=== PATIENT | female | born 1930 | race Caucasian/White ===

== ENCOUNTER 2017-06-08 09:42 | Emergency (ER) | payer OTHER ==
[~2017-06-08] VITALS: Ht 152.4 cm; Wt 53.1 kg
[~2017-06-08 09:42] MED LIST: ERGO1CAP6 PO; HYDR50TA15 PO; LEVO137T3 PO; LOSA100T27 PO; SIMV10TA84 PO; SODI650T PO
[2017-06-08 10:37] LABS: Basophils # (auto) 0.1 uL; Basophils % (auto) 1.1 % (0.0-2.0); Eosinophils # (auto) 0.3 uL; Eosinophils % (auto) 4.8 % (0.0-7.0); Hematocrit 33.6 % (36.0-46.0); Hemoglobin 11.4 g/dL (12.2-16.2); Lymphocytes % (auto) 15.7 % (10.0-50.0); Mean Corpuscular Hemoglobin 32.3 pg (28.0-32.0); Mean Corpuscular Hgb Conc. 33.8 g/dL (32.0-36.0); Mean Corpuscular Volume 95.5 fL (80.0-100.0); Monocytes # (auto) 0.5 uL; Monocytes % (auto) 7.8 % (0.0-12.0); Neutrophils # (auto) 4.5 uL; Neutrophils % (auto) 70.6 % (37.0-80.0); Platelet Count (auto) 126 10^3/uL (140-450); Red Blood Cells 3.52 10^6/uL (4.0-5.20); Red Cell Distribution Width 14.6 % (11.8-14.3); White Blood Cell 6.4 10^3/uL (4.4-10.8)
[2017-06-08 11:06] LABS: Albumin 3.3 g/dL (3.4-5.0); BUN/Creatinine Ratio 11.5; Bilirubin, Total 0.5 mg/dL (0.2-1.0); Calcium 8.4 mg/dL (8.5-10.1); Potassium 4.6 mmol/L (3.5-5.1); Total Protein 7.1 g/dL (6.4-8.2)
[2017-06-08] MEDS ORDERED: MORPHINE SULFATE 10 MG/ML INJ 1ML SDV IV ONE (12:00)
[2017-06-08 12:08] LABS: INR 0.98 (0.9-1.15); Prothrombin Time 10.7 sec (9.37-12.3)
[2017-06-08] MEDS ORDERED: ACETAMINOPHEN 325 MG TAB PO ONE (12:45)
[2017-06-08] MEDS ORDERED: LIDOCAINE 1% HCL (LOCAL ANESTH.) INJ 20ML MDV ONE (13:11)
[2017-06-08 15:00] VITALS: BP 164/70
== END 2017-06-08 14:49 | disposition home or self-care (01) ==
LOC: ER 09:42 → EDBD 09:42 → ER 14:49
DX: S52.501A Unspecified fracture of the lower end of right radius, initial encounter for closed fracture (principal); S09.90XA Unspecified injury of head, initial encounter; N17.9 Acute kidney failure, unspecified; I13.0 Hypertensive heart and chronic kidney disease with heart failure and stage 1 through stage 4 chronic kidney disease, or unspecified chronic kidney disease; I50.9 Heart failure, unspecified; E11.22 Type 2 diabetes mellitus with diabetic chronic kidney disease; N18.9 Chronic kidney disease, unspecified; E78.5 Hyperlipidemia, unspecified; Z95.1 Presence of aortocoronary bypass graft; Z90.49 Acquired absence of other specified parts of digestive tract; Z90.710 Acquired absence of both cervix and uterus; Z88.2 Allergy status to sulfonamides; Z88.8 Allergy status to other drugs, medicaments and biological substances; Z79.899 Other long term (current) drug therapy; W01.0XXA Fall on same level from slipping, tripping and stumbling without subsequent striking against object, initial encounter; Y93.89 Activity, other specified; Y99.8 Other external cause status; Y92.89 Other specified places as the place of occurrence of the external cause
CPT/HCPCS: 12011; 29125; 36415; 70450; 71045; 73100; 73502; 80053; 85025; 85610; 93005; J2001

== ENCOUNTER 2020-03-07 22:20 | Inpatient (IN) | payer OTHER ==
[~2020-03-07] VITALS: Ht 152.4 cm; Wt 60.1 kg
[~2020-03-07 22:20] MED LIST changes: +LOSA-39 PO; -LOSA100T27 PO
[2020-03-08] LABS: Basophils # (auto) 0 10 ^3/uL (0-0.2); Basophils % (auto) 0.4 % (0.0-2.0); Eosinophils # (auto) 0.1 10 ^3/uL (0-0.8); Hematocrit 32.7 % (36.0-46.0); Hemoglobin 10.8 g/dL (12.2-16.2); Lymphocytes # (auto) 0.4 10 ^3/uL (0.4-5.4); Lymphocytes % (auto) 4.5 % (10.0-50.0); Mean Corpuscular Hemoglobin 32.4 pg (28.0-32.0); Mean Corpuscular Hgb Conc. 33.1 g/dL (32.0-36.0); Mean Corpuscular Volume 97.9 fL (80.0-100.0); Monocytes % (auto) 11.6 % (0.0-12.0); Neutrophils # (auto) 7.4 10 ^3/uL (1.6-8.6); Neutrophils % (auto) 82.5 % (37.0-80.0); Platelet Count (auto) 169 10^3/uL (140-450); Red Blood Cells 3.34 10^6/uL (4.0-5.20); Red Cell Distribution Width 15.7 % (11.8-14.3); White Blood Cell 8.9 10^3/uL (4.4-10.8)
[2020-03-08 00:15] LABS: INR 1.14 (0.9-1.15); Partial Thromboplastin Time 30.9 sec (23.0-31.2)
[2020-03-08 00:21] LABS: Albumin 2.5 g/dL (3.4-5.0); BUN/Creatinine Ratio 15.7; Calcium 9.5 mg/dL (8.5-10.1); Potassium 4.1 mmol/L (3.5-5.1)
[2020-03-08 00:26] LABS: Bilirubin, Total 0.4 mg/dL (0.2-1.0); Total Protein 6.7 g/dL (6.4-8.2)
[2020-03-08] MEDS ORDERED: FUROSEMIDE 20 MG/2 ML VIAL IV ONE (01:00)
[2020-03-08] MEDS ORDERED: LORazepam 2MG/ML-1ML VIAL IV ONE (01:45)
[2020-03-08] MEDS ORDERED: ONDANSETRON HCL 4 MG/2 ML VIAL IV PRN (04:15)
[2020-03-08] MEDS ORDERED: NITROGLYCERIN 0.4 MG SL TAB SL PRN (04:15)
[2020-03-08] MEDS ORDERED: ERGOCALCIFEROL 50,000 UNIT(1.25MG) CAP PO SCH (04:15)
[2020-03-08] MEDS ORDERED: DEXTROSE (50%) 50ML SYRG IV PRN (04:15)
[2020-03-08] MEDS ORDERED: MORPHINE SULFATE 4 MG/ML SYR/VIAL IV PRN (04:15)
[2020-03-08] MEDS ORDERED: MORPHINE SULF INJ 2 MG/ML SYRINGE 1ML IV PRN (04:15)
[2020-03-08] MEDS ORDERED: DOCUSATE SOD 100 MG CAP PO PRN (04:15)
[2020-03-08 05:59] LABS: Basophils # (auto) 0 10 ^3/uL (0-0.2); Eosinophils # (auto) 0.1 10 ^3/uL (0-0.8); Lymphocytes # (auto) 0.9 10 ^3/uL (0.4-5.4)
[2020-03-08] MEDS ORDERED: hydrALAZINE HCL 25 MG TAB PO SCH (06:00)
[2020-03-08 06:04] LABS: Basophils % (auto) 0.3 % (0.0-2.0); Eosinophils % (auto) 1.1 % (0.0-7.0); Hematocrit 36.9 % (36.0-46.0); Hemoglobin 12.1 g/dL (12.2-16.2); Lymphocytes % (auto) 9.2 % (10.0-50.0); Mean Corpuscular Hemoglobin 33.3 pg (28.0-32.0); Mean Corpuscular Hgb Conc. 32.9 g/dL (32.0-36.0); Mean Corpuscular Volume 101.3 fL (80.0-100.0); Monocytes # (auto) 1.2 10 ^3/uL (0-1.3); Monocytes % (auto) 12.9 % (0.0-12.0); Neutrophils # (auto) 7.2 10 ^3/uL (1.6-8.6); Neutrophils % (auto) 76.5 % (37.0-80.0); Nucleated Red Blood Cells % 0.1 %; Platelet Count (auto) 178 10^3/uL (140-450); Red Blood Cells 3.64 10^6/uL (4.0-5.20); Red Cell Distribution Width 16.5 % (11.8-14.3); White Blood Cell 9.5 10^3/uL (4.4-10.8)
[2020-03-08 06:15] LABS: Potassium 4.3 mmol/L (3.5-5.1)
[2020-03-08 06:22] LABS: BUN/Creatinine Ratio 17.2; Bilirubin, Total 0.6 mg/dL (0.2-1.0); Calcium 9.4 mg/dL (8.5-10.1); Total Protein 7.1 g/dL (6.4-8.2)
[2020-03-08] MEDS: LEVOTHYROXINE SODIUM 50 MCG TAB PO SCH (06:36)
[2020-03-08] MEDS: SODIUM CHLOR 0.9% PF (SALINE LOCK) 10ML VIAL/SYR IV SCH ×3 (06:54→22:01)
[2020-03-08] MEDS: InsuLIN REG 1unit/0.01ml Soln (100units/ml) SC SCH ×4 (06:59→22:00)
[2020-03-08] MEDS: ACCU-CHEK COMFORT CURVE STRIP VI SCH ×4 (07:00→22:02)
[2020-03-08] MEDS: MULTIPLE VITAMIN TAB PO SCH (10:00)
[2020-03-08] MEDS ORDERED: LOSARTAN POTASSIUM 50 MG TAB PO SCH (10:00)
[2020-03-08] MEDS: cefTRIAXone 1GM/50ML D5W 50 ML IV SCH (10:48)
[2020-03-08] MEDS: SODIUM BICARBONATE 650 MG TAB PO SCH ×2 (10:49→22:01)
[2020-03-08] MEDS: ZINC SULFATE 220mg CAP or TAB PO SCH (10:49)
[2020-03-08] MEDS: ENOXAPARIN SOD 30 MG/0.3 ML SYRINGE SC SCH (10:50)
[2020-03-08] MEDS: ASCORBIC ACID 500 MG TAB PO SCH ×2 (10:50→22:02)
[2020-03-08] MEDS: AZITHROMYCIN 500MG/ 250ML 250 ML IV SCH (12:22)
--- NOTE | 2020-03-08 16:00 | NUR ---
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 PRIMARY RN VERBALIZED UNDERSTANDING.
[2020-03-08 16:59] VITALS: BP 159/69
--- NOTE | 2020-03-08 17:33 | NUR ---
[facility] SB[facility] received. Patient oriented to NILO AGUILAR RN primary RN, unit, room, bed, and unit policies regarding patient care and visiting hours. Patient now on continuous telemetry monitoring, tele box #[id number] and telemetry reading on arrival to unit is a-fib. Patient placed on bedside oxygen, weighed by bedscale and encouraged to call if they need something. All questions and concerns addressed, patient verbalized understanding. Addendum: 03/08/20 at 1732 by NILO AGUILAR RN RN noted intended for [id number]
--- NOTE | 2020-03-08 19:00 | NUR ---
Opening Shift Note Assumed care of patient from day shift RN, awake and alert and oriented x4. No S/S of distress/SOB or pain. Instructed on POC and to call for assist PRN, safety measures in place bed in lowest position side rails up x2 and call light with in reach and bed alarm on. will continue to monitor for changes Q1hr and PRN.
--- NOTE | 2020-03-08 19:32 | NUR ---
Closing Shift Note Patient resting in bed. No distress noted. Will endorse care to the night coordinator RN.
[2020-03-08 22:00] VITALS: BP 122/63
[2020-03-08] MEDS: PRAVASTATIN SODIUM 20 MG TAB PO SCH (22:01)
[2020-03-08] MEDS: HYDROcodone-ACET 5/325MG TAB PO PRN (22:48)
--- NOTE | 2020-03-08 22:48 | NUR ---
Patient complained of generalized 6/10 pain at this time pain medication administered.
--- NOTE | 2020-03-08 23:48 | NUR ---
patient states no pain at this time.
--- NOTE | 2020-03-09 02:10 | NUR ---
Paged hospitalist regarding positive blood culture.
--- NOTE | 2020-03-09 02:20 | NUR ---
Hospitalist called back new order for vancomycin per pharmacy telephone order read back and verified.
[2020-03-09] MEDS ORDERED: VANCOMYCIN 1GM/250ML 250 ML IV ONE (02:45)
[2020-03-09] MEDS ORDERED: VANCOMYCIN PER PHARMACY 0 MG IV SCH (02:45)
[2020-03-09 05:00] VITALS: BP 127/66
[2020-03-09] MEDS: SODIUM CHLOR 0.9% PF (SALINE LOCK) 10ML VIAL/SYR IV SCH ×3 (06:00→22:00)
[2020-03-09] MEDS: LEVOTHYROXINE SODIUM 50 MCG TAB PO SCH (06:48)
[2020-03-09] MEDS: InsuLIN REG 1unit/0.01ml Soln (100units/ml) SC SCH ×4 (06:49→22:00)
[2020-03-09] MEDS: ACCU-CHEK COMFORT CURVE STRIP VI SCH ×4 (06:49→22:26)
--- NOTE | 2020-03-09 08:00 | NUR ---
OPENING SHIFT NOTE ASSUMED CARE OF PATIENT AWAKE AND ALERT. NO S/S OF DISTRESS NOTED OR COMPLAINTS OF PAIN. PATIENT UPDATED ON POC FOR THE DAY AND ALL QUESTIONS ANSWERED. PATIENT ASSISTED TO SIT ON THE SIDE OF THE BED TO EAT BREAKFAST. BED IS IN LOWEST, LOCKED POSITION WITH SIDE RAILS UP X2 AND CALL LIGHT WITHIN REACH. WILL CONTINUE TO MONITOR Q1H AND PRN.
[2020-03-09 08:40] VITALS: BP 125/74
[2020-03-09 09:20] LABS: Basophils # (auto) 0 10 ^3/uL (0-0.2); Basophils % (auto) 0.4 % (0.0-2.0); Eosinophils # (auto) 0.1 10 ^3/uL (0-0.8); Eosinophils % (auto) 0.7 % (0.0-7.0); Hematocrit 38.5 % (36.0-46.0); Hemoglobin 12.4 g/dL (12.2-16.2); Lymphocytes # (auto) 0.5 10 ^3/uL (0.4-5.4); Lymphocytes % (auto) 4.8 % (10.0-50.0); Mean Corpuscular Hemoglobin 31.7 pg (28.0-32.0); Mean Corpuscular Hgb Conc. 32.2 g/dL (32.0-36.0); Mean Corpuscular Volume 98.6 fL (80.0-100.0); Monocytes % (auto) 9.4 % (0.0-12.0); Neutrophils % (auto) 84.7 % (37.0-80.0); Nucleated Red Blood Cells % 0.1 %; Platelet Count (auto) 213 10^3/uL (140-450); White Blood Cell 10.6 10^3/uL (4.4-10.8)
--- NOTE | 2020-03-09 09:34 | NUR ---
PARACENTESIS RECEIVED CALL FROM ULTRASOUND STATING THE RADIOLOGIST HAS DETERMINED THERE IS NOT ENOUGH FLUID TO WARRANT A PARACENTESIS. WILL CONTINUE CARE.
[2020-03-09 09:59] LABS: Anion Gap 15 (5-15); Carbon Dioxide 21 mmol/L (21-32); Chloride 83 mmol/L (98-107); Potassium 4.6 mmol/L (3.5-5.1)
[2020-03-09 10:00] LABS: Alanine Aminotransferase 25 U/L (13-56); Albumin 2.8 g/dL (3.4-5.0); Alkaline Phosphatase 91 U/L (45-117); Aspartate Aminotransferase 17 U/L (15-37); BUN/Creatinine Ratio 15.8; Bilirubin, Total 0.5 mg/dL (0.2-1.0); Blood Urea Nitrogen 75 mg/dL (7-18); Calcium 8.7 mg/dL (8.5-10.1); GFR African American 11 mL/min; GFR Non-African American 9 mL/min; Glucose 119 mg/dL (74-106); Magnesium 2.5 mg/dL (1.6-2.6); Total Protein 7.2 g/dL (6.4-8.2)
[2020-03-09 10:02] LABS: Sodium 119 mmol/L (136-145)
[2020-03-09] MEDS: cefTRIAXone 1GM/50ML D5W 50 ML IV SCH (10:22)
[2020-03-09] MEDS: AZITHROMYCIN 500MG/ 250ML 250 ML IV SCH (10:22)
[2020-03-09] MEDS: SODIUM BICARBONATE 650 MG TAB PO SCH ×2 (10:23→22:00)
[2020-03-09] MEDS: ZINC SULFATE 220mg CAP or TAB PO SCH (10:23)
[2020-03-09] MEDS: MULTIPLE VITAMIN TAB PO SCH (10:23)
[2020-03-09] MEDS: ASCORBIC ACID 500 MG TAB PO SCH ×2 (10:23→22:00)
[2020-03-09] MEDS: ENOXAPARIN SOD 30 MG/0.3 ML SYRINGE SC SCH (10:23)
--- NOTE | 2020-03-09 11:10 | NUR ---
WOUND CARE NOTE: WOUND CARE IN TO SEE PATIENT PER WOUND CARE REQUEST. PATIENT ADMITTED TO [facility]. BEDSIDE NURSE NOTED SKIN INTEGRITY ISSUES UPON ADMISSION. PHOTOGRAPHS TAKEN AT THAT TIME FOR REFERENCE. PATIENT OSEI SCORE IS 13. PATIENT NOTED TO HAVE SKIN TEARS TO LEFT LOWER ARM AND LEFT LOWER LEG. PATIENT ALSO HAS NON-BLANCHABLE REDNESS TO SACRUM. SKIN TEARS CLEANSED WITH NORMAL SALINE, PATTED DRY WITH STERILE GAUZE, THERAHONEY APPLIED AND COVERED WITH OPTIFOAM GENTLE DRESSINGS. ZGUARD APPLIED TO SACRUMA ND COVERED WITH OPTIFOAM GENTLE SACRAL DRESSING. RECOMMEND: FREQUENT Q2HOUR REPOSITIONING CONDITION PERMITS. REDISTRIBUTE PRESSURE UTILIZING PILLOWS AND WEDGES. DAILY/PRN DRESSING CHANGES. SKIN/WOUND CARE PLAN. CONTINUED MONITORING BY WOUND CARE TEAM. Addendum: 03/09/20 at 1448 by KAREN RIDDLE RN RN Amended: Links added.
[2020-03-09] MEDS: HYDROcodone-ACET 5/325MG TAB PO PRN ×2 (11:27→22:38)
--- NOTE | 2020-03-09 12:27 | NUR ---
Nutrition Consult/assessment Notes please see attached link fro complete assessment Est energy needs BW 60 [id number] kcals (30-33 kcals/kgBW), Est protein needs: 72-84 gms/day (1.2-1.4 g/kgBW r/t wounds HD)Will continue to reassess prn Addendum: 03/09/20 at [address] Amended: Links added.
--- NOTE | 2020-03-09 12:29 | NUR ---
AT BEDSIDE DR CORTEZ AT BEDSIDE ROUNDING ON PATIENT.
[2020-03-09 13:00] VITALS: BP 145/80
--- NOTE | 2020-03-09 13:45 | NUR ---
SPOKE WITH MD RECEIVED CALL FROM DR ESTES REGARDING CONSULTATION. PER DR ESTES PATIENT IS TO BE DIALYZED TODAY. WILL CONTINUE CARE.
[2020-03-09 17:00] VITALS: BP 140/71
[2020-03-09 22:00] VITALS: BP 114/48
[2020-03-09] MEDS: PRAVASTATIN SODIUM 20 MG TAB PO SCH (22:00)
--- NOTE | 2020-03-09 22:00 | NUR ---
spoke with Dr. Aleman, who requests for up to 1 liter to be taken off of pt, however pt had 1.5 liters taken off during dialysis tonight, veneer jointer operator will not page him so that I can confirm order, will ask day shift to f/u.
[2020-03-10 05:00] VITALS: BP 108/43
[2020-03-10] MEDS: SODIUM CHLOR 0.9% PF (SALINE LOCK) 10ML VIAL/SYR IV SCH ×3 (06:10→20:50)
[2020-03-10] MEDS: InsuLIN REG 1unit/0.01ml Soln (100units/ml) SC SCH ×4 (07:00→22:00)
[2020-03-10] MEDS: LEVOTHYROXINE SODIUM 50 MCG TAB PO SCH (07:00)
[2020-03-10] MEDS: ACCU-CHEK COMFORT CURVE STRIP VI SCH ×4 (07:16→22:22)
--- NOTE | 2020-03-10 07:18 | NUR ---
pt had episode of vomiting, given zofran prn, gown changed, meds am meds held to give zofran time to take effect. pt is calm airway patent, no s/s of distress.
[2020-03-10 07:38] LABS: Basophils # (auto) 0 10 ^3/uL (0-0.2); Basophils % (auto) 0.3 % (0.0-2.0); Eosinophils # (auto) 0.1 10 ^3/uL (0-0.8); Eosinophils % (auto) 0.6 % (0.0-7.0); Hematocrit 34.4 % (36.0-46.0); Hemoglobin 11.2 g/dL (12.2-16.2); Lymphocytes # (auto) 0.4 10 ^3/uL (0.4-5.4); Lymphocytes % (auto) 3.2 % (10.0-50.0); Mean Corpuscular Hemoglobin 31.9 pg (28.0-32.0); Mean Corpuscular Hgb Conc. 32.5 g/dL (32.0-36.0); Mean Corpuscular Volume 98.2 fL (80.0-100.0); Monocytes # (auto) 1.1 10 ^3/uL (0-1.3); Monocytes % (auto) 9.5 % (0.0-12.0); Neutrophils # (auto) 9.6 10 ^3/uL (1.6-8.6); Neutrophils % (auto) 86.4 % (37.0-80.0); Platelet Count (auto) 194 10^3/uL (140-450); Red Blood Cells 3.51 10^6/uL (4.0-5.20); Red Cell Distribution Width 15.9 % (11.8-14.3); White Blood Cell 11.2 10^3/uL (4.4-10.8)
[2020-03-10 08:03] LABS: Potassium 3.4 mmol/L (3.5-5.1)
[2020-03-10 08:09] LABS: BUN/Creatinine Ratio 12.4; Calcium 8.7 mg/dL (8.5-10.1)
[2020-03-10 09:00] VITALS: BP 131/67
[2020-03-10] MEDS: cefTRIAXone 1GM/50ML D5W 50 ML IV SCH (09:39)
[2020-03-10] MEDS: AZITHROMYCIN 500MG/ 250ML 250 ML IV SCH (09:39)
[2020-03-10] MEDS: ENOXAPARIN SOD 30 MG/0.3 ML SYRINGE SC SCH (09:40)
[2020-03-10] MEDS: ZINC SULFATE 220mg CAP or TAB PO SCH (09:45)
[2020-03-10] MEDS: SODIUM BICARBONATE 650 MG TAB PO SCH ×2 (09:45→22:00)
[2020-03-10] MEDS: ASCORBIC ACID 500 MG TAB PO SCH ×2 (09:46→22:00)
[2020-03-10] MEDS: MULTIPLE VITAMIN TAB PO SCH (09:46)
[2020-03-10 13:00] VITALS: BP 127/59
--- NOTE | 2020-03-10 16:21 | NUR ---
D/C Planning Per social service consul for hospice evaluation. Per ANNABELLE patient family has requested [facility] hospice. Faxed clinical information to agency. Per Kaya with [facility] hospice patient has been accepted. Per Kaya they will have medical equipment for patient tomorrow 03/11/20. Informed RN Elicia hospice cannot be arranged until medical equipment has been deliver to patient home.
--- NOTE | 2020-03-10 16:26 | NUR ---
DISCHARGE STATUS RECEIVED CALL FROM CASE MANAGEMENT STATING HOSPICE EQUIPMENT WILL NOT BE READY FOR PATIENT UNTIL TOMORROW. MD NOTIFIED AND DISCHARGE HELD UNTIL TOMORROW. WILL CONTINUE CARE.
[2020-03-10 16:42] VITALS: BP 108/54
[2020-03-10 22:00] VITALS: BP 110/41
[2020-03-10] MEDS: PRAVASTATIN SODIUM 20 MG TAB PO SCH (22:00)
[2020-03-11] MEDS ORDERED: LORazepam 2MG/ML-1ML VIAL IV ONE (01:45)
[2020-03-11 05:00] VITALS: BP 95/56
[2020-03-11] MEDS: SODIUM CHLOR 0.9% PF (SALINE LOCK) 10ML VIAL/SYR IV SCH ×2 (05:51→14:00)
[2020-03-11] MEDS: ACCU-CHEK COMFORT CURVE STRIP VI SCH ×2 (05:51→11:30)
[2020-03-11] MEDS: LEVOTHYROXINE SODIUM 50 MCG TAB PO SCH (06:26)
[2020-03-11] MEDS: InsuLIN REG 1unit/0.01ml Soln (100units/ml) SC SCH ×2 (06:46→11:30)
--- NOTE | 2020-03-11 07:38 | NUR ---
OPENING SHIFT NOTE ASSUMED CARE OF PATIENT FROM NOC SHIFT RN, AWAKE AND ALERT WITH SITTER AT BEDSIDE. NO S/S OF DISTRESS NOTED OR COMPLAINTS OF PAIN. PERIODS OF CONFUSION NOTED. BED IN LOWEST AND LOCKED POSITION WITH SIDE RAILS UP X2 AND CALL LIGHT WITHIN REACH. WILL CONTINUE TO MONITOR Q1H AND PRN.
[2020-03-11 08:00] VITALS: BP 138/93
[2020-03-11 09:00] VITALS: BP 138/93
[2020-03-11] MEDS: cefTRIAXone 1GM/50ML D5W 50 ML IV SCH (09:00)
--- NOTE | 2020-03-11 09:21 | NUR ---
D/C Planning Received a call from Matilda with [facility] advising me patient medical equipment will be deliver before 2 pm today. Transportation has been arranged with [facility] via [facility] with oxygen at 2pm. Informed JANELLE Blum.
--- NOTE | 2020-03-11 09:22 | NUR ---
FORTUNATO SAHU. CALLED AND GAVE UPDATE THAT PATIENT WILL BE DISCHARGED WITH [facility] AT 1400. PATIENT IS BEING DISCHARGED HOME ON HOSPICE WITH [facility].
--- NOTE | 2020-03-11 09:48 | NUR ---
DR. CORTEZ AT BEDSIDE. WILL UPDATE DISCHARGE ORDERS FOR TODAY
[2020-03-11] MEDS: AZITHROMYCIN 500MG/ 250ML 250 ML IV SCH (10:00)
[2020-03-11] MEDS: ENOXAPARIN SOD 30 MG/0.3 ML SYRINGE SC SCH (10:02)
[2020-03-11] MEDS: ASCORBIC ACID 500 MG TAB PO SCH (10:03)
[2020-03-11] MEDS: SODIUM BICARBONATE 650 MG TAB PO SCH (10:03)
[2020-03-11] MEDS: ZINC SULFATE 220mg CAP or TAB PO SCH (10:03)
[2020-03-11] MEDS: MULTIPLE VITAMIN TAB PO SCH (10:04)
--- NOTE | 2020-03-11 12:30 | NUR ---
WOUND DISCHARGE PHOTO TAKEN WOUND CARE DRESSING DONE PER MD'S ORDER. PATIENT TOLERATED WELL.
[2020-03-11 13:00] VITALS: BP 108/65
--- NOTE | 2020-03-11 15:30 | NUR ---
PATIENT DISCHARGED HOME ON HOSPICE WITH [facility]. PATIENT AWAKE AND ALERT. NO SIGNS OF DISTRESS NOTED. ALL DISCHARGE PAPERWORK PROVIDED. PATIENT'S FAMILY MEMBER ALYSON MADE AWARE OF DISCHARGE.
== END 2020-03-11 15:30 | disposition hospice, home (50) | DRG 291 ==
LOC: EDBD 22:20 → ER 22:25 → TELE 22:26 → TELE-WESTW 03-08 14:38
PROVIDERS: ADMIT Nurse Practitioner Family; ATTEND Internal Medicine Geriatric Medicine
PROC: 5A1D70Z Performance of Urinary Filtration, Intermittent, Less than 6 Hours Per Day (ICD-10-PCS; principal; 2020-03-09)
DX: I13.2 Hypertensive heart and chronic kidney disease with heart failure and with stage 5 chronic kidney disease, or end stage renal disease (principal); N18.6 End stage renal disease; I50.23 Acute on chronic systolic (congestive) heart failure; J96.21 Acute and chronic respiratory failure with hypoxia; J18.9 Pneumonia, unspecified organism; R18.8 Other ascites; E87.1 Hypo-osmolality and hyponatremia; J44.0 Chronic obstructive pulmonary disease with (acute) lower respiratory infection; E44.1 Mild protein-calorie malnutrition; Z20.828 Contact with and (suspected) exposure to other viral communicable diseases; I42.9 Cardiomyopathy, unspecified; Z99.2 Dependence on renal dialysis; E03.9 Hypothyroidism, unspecified; M10.9 Gout, unspecified; I35.0 Nonrheumatic aortic (valve) stenosis; E78.5 Hyperlipidemia, unspecified; Z88.2 Allergy status to sulfonamides; Z88.8 Allergy status to other drugs, medicaments and biological substances; E11.22 Type 2 diabetes mellitus with diabetic chronic kidney disease; F32.9 Major depressive disorder, single episode, unspecified; I25.10 Atherosclerotic heart disease of native coronary artery without angina pectoris; I48.91 Unspecified atrial fibrillation; Z51.5 Encounter for palliative care; Z82.49 Family history of ischemic heart disease and other diseases of the circulatory system; Z90.710 Acquired absence of both cervix and uterus; Z95.1 Presence of aortocoronary bypass graft
CPT/HCPCS: 36415; 71045; 76700; 80048; 80053; 80061; 80202; 82962; 83036; 83605; 83735; 83880; 84443; 84484; 85025; 85379; 85610; 85730; 87040; 87077; 87081; 87186; 87426; 90935; 93005; 93306; G0378; J0696; J2405